=== PATIENT | female | born 1970 | race Caucasian/White ===

== ENCOUNTER 2021-11-21 15:06 | Outpatient (CLI) | payer BC | END 2021-11-21 15:07 | disposition home or self-care (01) | LOC: CSHMAMMO 15:06 | PROVIDERS: ATTEND Obstetrics & Gynecology | DX: Z12.31 Encounter for screening mammogram for malignant neoplasm of breast (principal); Z98.82 Breast implant status | CPT/HCPCS: 77063; 77067 ==

== ENCOUNTER 2022-11-28 09:54 | Outpatient (CLI) | payer BC | END 2022-11-28 09:55 | disposition home or self-care (01) | LOC: CSHMAMMO 09:54 | PROVIDERS: ATTEND Obstetrics & Gynecology | DX: Z12.31 Encounter for screening mammogram for malignant neoplasm of breast (principal); Z13.820 Encounter for screening for osteoporosis; Z98.82 Breast implant status | CPT/HCPCS: 77063; 77067; 77080 ==

== ENCOUNTER 2023-01-09 09:13 | Outpatient (CLI) | payer BC | END 2023-01-09 09:14 | disposition home or self-care (01) | LOC: CSHWCC 09:13 | PROVIDERS: ATTEND Nurse Practitioner Family | DX: T81.89XD Other complications of procedures, not elsewhere classified, subsequent encounter (principal) | CPT/HCPCS: 99203; G0463 ==

== ENCOUNTER 2023-02-02 10:00 | Outpatient (CLI) | payer BC | END 2023-02-02 10:01 | disposition home or self-care (01) | LOC: CSHWCC 10:00 | PROVIDERS: ATTEND Preventive Medicine Undersea and Hyperbaric Medicine | DX: T81.89XD Other complications of procedures, not elsewhere classified, subsequent encounter (principal) | CPT/HCPCS: 99211; G0463 ==

== ENCOUNTER 2023-02-09 14:36 | Outpatient (CLI) | payer BC | END 2023-02-09 14:37 | disposition home or self-care (01) | LOC: CSHWCC 14:36 | PROVIDERS: ATTEND Physician Assistant | DX: T81.89XD Other complications of procedures, not elsewhere classified, subsequent encounter (principal) | CPT/HCPCS: 11042; 87070; 87077; 87186; 87205; 97607; 99213; G0463 ==

== ENCOUNTER 2023-02-12 19:03 | Inpatient (IN) | payer BC ==
[2023-02-12] MEDS ORDERED: Morphine 4 MG/ML VIAL ONE (20:10)
[2023-02-12] MEDS ORDERED: Cefepime 2 GM VIAL ONE (20:10)
[2023-02-12] MEDS ORDERED: Ondansetron PF 4 MG/2 ML Vial ONE (20:10)
[2023-02-12] MEDS ORDERED: Vancomycin 1 GM VIAL ONE (20:10)
[2023-02-12 20:16] LABS: #Eosinphils 0.2 10x3/uL (0.0-0.5); #Monocytes 0.4 10x3/uL (0.0-1.1); %Basophils 0.5 % (0.0-2.0); %Eosinophils 2.1 % (0.0-6.0); %Lymphocytes 24.4 % (18.0-47.0); %Monocytes 5.8 % (0.0-10.0); %Neutrophils 66.7 % (40.0-75.0); Hematocrit 40.9 % (34.9-44.5); Hemoglobin 14.1 g/dL (12.0-15.5); Mean Corpuscular HGB CONC 34.5 g/dL (32.0-36.0); Mean Corpuscular Hemoglobin 31.2 pg (27.0-33.0); Mean Corpuscular Volume 90.5 fl (81.6-98.3); Mean Platelet Volume 10.8 fl (7.4-10.4); Platelet Count 318 10x3/uL (150-450); RBC Distribution Width 13.8 % (11.5-14.5); Red Blood Cell (RBC) Count 4.52 10x6/uL (3.90-5.03); White Blood Cell (WBC) Count 7.5 10x3/uL (3.5-10.5)
[2023-02-12 20:29] LABS: ALT (SGPT) 15 U/L (8-55); AST (SGOT) 24 U/L (5-34); Albumin 4.6 g/dL (3.5-5.0); Alkaline Phosphatase 59 U/L (40-110); Anion Gap 17 mmol/L (10-20); BUN (Urea Nitrogen) 16 mg/dL (9.8-20.1); Bilirubin, Total Less than 0.2 mg/dL (0.2-1.2); Calc. Creatinine Clearance 0 mL/min (70-130); Calcium 10.2 mg/dL (7.8-10.44); Carbon Dioxide 23 mmol/L (22-29); Chloride 103 mmol/L (98-107); Estimated GFR 93; Globulin 3.1 g/dL (2.4-3.5); Glucose 100 mg/dL (70-105); Potassium 4.7 mmol/L (3.5-5.1); Protein, Total 7.7 g/dL (6.0-8.3); Sodium 138 mmol/L (136-145)
[2023-02-12] MEDS ORDERED: Calcium Carbonate 500 MG ChewTAB PO PRN (21:19)
[2023-02-12] MEDS ORDERED: Senokot S 8.6-50 MG TAB PO PRN (21:19)
[2023-02-12] MEDS ORDERED: Ondansetron PF 4 MG/2 ML Vial IVP PRN (21:19)
[2023-02-12] MEDS ORDERED: HYDROcodone/Acetaminophen 5/325 mg Tablet PO PRN (21:19)
[2023-02-12] MEDS ORDERED: Morphine 2 MG/ML VIAL ONE (21:51)
[2023-02-12 23:05] VITALS: BMI 22.1
[2023-02-12] MEDS: Lactated Ringer's 1,000 ML IV SCH (23:45)
[2023-02-12] MEDS: Zolpidem Tartrate 5 MG TAB PO PRN (23:53)
[2023-02-13 04:02] LABS: #Eosinphils 0.2 10x3/uL (0.0-0.5); #Monocytes 0.7 10x3/uL (0.0-1.1); %Basophils 0.4 % (0.0-2.0); %Lymphocytes 22.9 % (18.0-47.0); %Monocytes 7.1 % (0.0-10.0); %Neutrophils 67.2 % (40.0-75.0); Hematocrit 37.7 % (34.9-44.5); Hemoglobin 12.5 g/dL (12.0-15.5); Mean Corpuscular HGB CONC 33.2 g/dL (32.0-36.0); Mean Corpuscular Hemoglobin 29.9 pg (27.0-33.0); Mean Corpuscular Volume 90.2 fl (81.6-98.3); Mean Platelet Volume 10.5 fl (7.4-10.4); Platelet Count 291 10x3/uL (150-450); RBC Distribution Width 13.6 % (11.5-14.5); Red Blood Cell (RBC) Count 4.18 10x6/uL (3.90-5.03); White Blood Cell (WBC) Count 10.4 10x3/uL (3.5-10.5)
[2023-02-13 04:48] LABS: Anion Gap 11 mmol/L (10-20); BUN (Urea Nitrogen) 13 mg/dL (9.8-20.1); Calc. Creatinine Clearance 82 mL/min (70-130); Calcium 8.6 mg/dL (7.8-10.44); Carbon Dioxide 24 mmol/L (22-29); Chloride 108 mmol/L (98-107); Estimated GFR 103; Glucose 95 mg/dL (70-105); Potassium 4.2 mmol/L (3.5-5.1); Sodium 139 mmol/L (136-145)
[2023-02-13 05:04] LABS: CRP (Inflammatory) 1.13 mg/dL (= or < 0.5)
[2023-02-13] MEDS: Lactated Ringer's 1,000 ML IV SCH (07:32)
[2023-02-13] MEDS: Cefepime 2 GM in Sodium Chloride 0.9% 100 ML IVPB SCH ×2 (08:55→20:35)
[2023-02-13] MEDS ORDERED: FLU VACC QS2023-24(6MOS UP)/PF 60 MCG/0.5 ML SYRINGE IM ONE (09:00)
[2023-02-13] MEDS: Morphine 2 MG/ML VIAL SLOW IVP PRN ×2 (10:17→17:56)
[2023-02-13] MEDS: Vancomycin HCl 750 MG in Sodium Chloride 0.9% 250 ML 250 ML IVPB SCH ×2 (10:32→22:21)
[2023-02-13] MEDS ORDERED: Ibuprofen 400 MG TAB PO PRN (11:42)
[2023-02-13 12:53] LABS: Hemoglobin A1c 5.3 % (4.0-6.0)
[2023-02-13] MEDS ORDERED: [UNRECOGNIZED DRUG - OTHER] PO SCH (14:00)
[2023-02-13] MEDS ORDERED: ESTROGEN ESTER PO SCH (14:00)
[2023-02-13] MEDS ORDERED: TESTOSTERONE PO SCH (14:00)
[2023-02-13] MEDS: Acetaminophen 325 MG TAB PO PRN (18:16)
[2023-02-13] MEDS: Zolpidem Tartrate 5 MG TAB PO PRN (22:21)
[2023-02-14 04:57] VITALS: TEMP 97.6
[2023-02-14 05:54] LABS: Anion Gap 13 mmol/L (10-20); BUN (Urea Nitrogen) 12 mg/dL (9.8-20.1); Calc. Creatinine Clearance 76 mL/min (70-130); Calcium 8.7 mg/dL (7.8-10.44); Carbon Dioxide 26 mmol/L (22-29); Chloride 105 mmol/L (98-107); Estimated GFR 93; Glucose 85 mg/dL (70-105); Potassium 4.3 mmol/L (3.5-5.1); Sodium 140 mmol/L (136-145)
[2023-02-14] MEDS ORDERED: Thyroid 30 MG TAB PO SCH (06:00)
[2023-02-14] MEDS: Cefepime 2 GM in Sodium Chloride 0.9% 100 ML IVPB SCH (08:59)
[2023-02-14 09:06] LABS: Vancomycin, Trough 11.2 ug/mL
[2023-02-14] MEDS: Acetaminophen 325 MG TAB PO PRN (09:11)
[2023-02-14] MEDS: Vancomycin HCl 750 MG in Sodium Chloride 0.9% 250 ML 250 ML IVPB SCH (11:12)
[2023-02-14 13:07] VITALS: BP 139/75
== END 2023-02-14 13:23 | disposition home or self-care (01) | DRG 603 ==
LOC: CSHERS 19:03 → CSHTELE 19:43
PROVIDERS: ADMIT Student in an Organized Health Care Education/Training Program; ATTEND Family Medicine
DX: L03.115 Cellulitis of right lower limb (principal); Z98.890 Other specified postprocedural states; Z79.899 Other long term (current) drug therapy; Z83.3 Family history of diabetes mellitus; Z88.5 Allergy status to narcotic agent; Z91.040 Latex allergy status; Z91.018 Allergy to other foods; T81.89XD Other complications of procedures, not elsewhere classified, subsequent encounter
CPT/HCPCS: 36415; 80048; 80053; 80202; 83036; 83605; 85025; 86140; 87040; 93005; 96365; 96367; 96375; 96376; 97139; 99212; G0463; J0692; J1650; J2270; J2272; J2405; J3370; J3490; J7050; J7120

== ENCOUNTER 2023-02-17 09:33 | Outpatient (CLI) | payer BC | END 2023-02-17 09:34 | disposition home or self-care (01) | LOC: CSHWCC 09:33 | PROVIDERS: ATTEND Preventive Medicine Undersea and Hyperbaric Medicine | DX: T81.89XD Other complications of procedures, not elsewhere classified, subsequent encounter (principal) | CPT/HCPCS: 97602; 99213; G0463 ==

== ENCOUNTER 2023-03-05 15:03 | Outpatient (CLI) | payer BC | END 2023-03-05 15:04 | disposition home or self-care (01) | LOC: CSHWCC 15:03 | PROVIDERS: ATTEND Physician Assistant | DX: T81.32XD Disruption of internal operation (surgical) wound, not elsewhere classified, subsequent encounter (principal) | CPT/HCPCS: 97597; 99212; G0463 ==

== ENCOUNTER 2024-12-09 11:30 | Outpatient (CLI) | payer BC | END 2024-12-09 11:31 | disposition home or self-care (01) | LOC: CSHMAMMO 11:30 | PROVIDERS: ATTEND Obstetrics & Gynecology | DX: Z12.31 Encounter for screening mammogram for malignant neoplasm of breast (principal); Z98.82 Breast implant status | CPT/HCPCS: 77063; 77067 ==